=== PATIENT | female | born 1995 | race Two or more races ===

== ENCOUNTER 2017-03-30 17:37 | Emergency (ER) | payer BC, OTHER ==
[~2017-03-30] VITALS: Ht 180.3 cm; Wt 74.8 kg
[2017-03-30 18:06] VITALS: BP 119/68
[2017-03-30] MEDS ORDERED: IBUPROFEN 600 MG TAB PO ONE (19:15)
== END 2017-03-30 19:54 | disposition home or self-care (01) ==
LOC: ER 17:37
DX: S46.912A Strain of unspecified muscle, fascia and tendon at shoulder and upper arm level, left arm, initial encounter (principal); M54.6 Pain in thoracic spine; V49.60XA Unspecified car occupant injured in collision with unspecified motor vehicles in traffic accident, initial encounter; Y93.89 Activity, other specified; Y92.410 Unspecified street and highway as the place of occurrence of the external cause; Y99.8 Other external cause status